=== PATIENT | female | born 1970 | race Caucasian/White ===

== ENCOUNTER 2022-12-09 08:33 | Emergency (ER) | payer BC, SELFPAY ==
[2022-12-09 08:40] VITALS: BP 121/55; PULSE 55; RESP 18; TEMP 36.6; O2SAT 96; BMI 30.4
--- NOTE | 2022-12-09 08:47 | XR_ITS ---
FINAL REPORT CLINICAL HISTORY: ankle pain FINDINGS: Left foot Three views were obtained. There is no acute fracture or dislocation. The joint spaces appear normal. No soft tissue abnormality is identified. There is a small plantar calcaneal spur. IMPRESSION: No acute process. Reviewed, Interpreted and Dictated by Vasile Constantino III, MD Transcribed by Kiley Barrera Authenticated and [facility]
--- NOTE | 2022-12-09 08:47 | XR_ITS ---
FINAL REPORT CLINICAL HISTORY: ankle pain FINDINGS: Left ankle Three views were obtained. There is no acute fracture or dislocation. The joint spaces appear normal. No soft tissue abnormality is identified. There is a plantar calcaneal spur. IMPRESSION: No acute process. Reviewed, Interpreted and Dictated by Vasile Constantino III, MD Transcribed by Kiley Barrera Authenticated and [facility]
--- NOTE | 2022-12-09 08:48 | PC.NURSE ---
Called RAD to inform of xrays
--- NOTE | 2022-12-09 08:58 | EXP.UTC ---
Discharge Plan Disposition Patient Disposition: Home, Self-Care Condition: Good Prescriptions Prescriptions: New methylprednisolone 4 mg Tablets,Dose Pack 4 mg PO DIRECTED Qty: 21 0RF No Action enalapril maleate 5 mg tablet 5 mg PO BID Patient Comments: TAKE 1 TABLET BY MOUTH TWICE A DAY bisoprolol fumarate 5 mg tablet 5 mg PO DAILY Patient Comments: TAKE 1 TABLET BY MOUTH EVERY DAY escitalopram oxalate 10 mg tablet 10 mg PO DAILY Patient Comments: TAKE 1 TABLET BY MOUTH EVERY DAY fenofibrate nanocrystallized 145 mg tablet 145 mg PO DAILY Patient Comments: TAKE 1 TABLET BY MOUTH DAILY. NEED TO KEEP FOLLOW UP APPT Referrals Follow up/Referrals: Prema Ferrari [Primary Care Provider] - See instructions Activity Restrictions/Add. Instructions Additional Instructions/Restrictions: Rest the extremity, apply ice for 15 minutes as tolerated three or four times per day, Wear the suzy wrap for compression, Elevate the extremity as tolerated while you are resting. Take the medication as directed. Follow up with Dr. Rodriguez (podiatry). I put in a referral but you need to call her office and schedule an appointment. Follow up with your regular doctor. GO TO THE ER FOR ANY WORSENING SYMPTOMS Clinical Impressions Clinical Impression: Tendinitis of left foot, Left foot pain Stand Alone Forms Stand Alone Forms: Work/School Release Instructions Patient Instructions: DI for Tendinitis, DI for Foot Pain, How to Apply an Elastic Wrap on Ankle Discharge ED Provider: Ralph Ruiz [facility] General Stated complaint: Left ankle swollen, no accident Mode of Arrival: Ambulatory Source of Information: Patient Limitations: No Limitations Time Seen by Provider: 12/09/22 08:58 Description of Symptoms (Recalled from Triage Doc. by RN): left ankle is swollen and hurts to put weight on it HEENT Symptoms (Recalled from RN notes): No Resp Symptoms (Recalled from RN notes): No Skin Symptoms (Recalled from RN notes): No MS Symptoms (Recalled from RN notes): Yes Functional Status (Recalled from RN notes): n/a History of Present Illness Provider Complaint: She states that for the past 5 days she has had left foot and ankle pain and swelling. She denies any injury. She denies any history of diabetes or gout. Related Data Home Medications Medication Instructions Recorded Confirmed bisoprolol fumarate 5 mg tablet 5 mg PO DAILY HTN 12/09/22 12/09/22 enalapril maleate 5 mg tablet 5 mg PO BID HTN 12/09/22 12/09/22 escitalopram oxalate 10 mg tablet 10 mg PO DAILY mood 12/09/22 12/09/22 fenofibrate nanocrystallized 145 145 mg PO DAILY Cholesterol 12/09/22 12/09/22 mg tablet Previous Rx's Medication Instructions Recorded methylprednisolone 4 mg tablets in 4 mg PO DIRECTED #21 tabs 12/09/22 a dose pack Allergies Allergy/AdvReac Type Severity Reaction Status Date / Time No Known Allergies Allergy Verified 12/09/22 08:53 Worker's Comp Is this a Worker's Comp case?: No [facility] Disclaimer: The information contained in this section may have been updated after the patient was seen, as this information can be updated by other users. 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 Smoking Status: Never smoker alcohol intake: never current occupational status: retired Travel in the last 8 weeks: None ROS Obtained: Yes All systems reviewed & no additional complaints except as documented Constitutional Constitutional: Denies chills and Denies fever(s) Eyes Eyes: Denies eye discharge ENT Ears, Nose, Mouth, and Throat: Denies dizziness, Denies otalgia and Denies sore throat Cardiovascular Cardiovascular: Denies chest pain Respiratory Respiratory: Denies shortness of breath, Denies chest congestion, Denies cough, Denies stridor and Denies wheezing Gastrointestinal Gastrointestingal: Denies nausea or vomiting Musculoskeletal Musculoskeletal: Reports as per HPI Integu
[2022-12-09 09:41] VITALS: BP 121/55; PULSE 55; RESP 18; TEMP 36.6; O2SAT 96
== END 2022-12-09 09:40 | disposition home or self-care (01) ==
PROVIDERS: Emergency Provider Nurse Practitioner Family; PCP Family Medicine
DX: M79.672 Pain in left foot (principal); M77.52 Other enthesopathy of left foot and ankle
CPT/HCPCS: 73610; 73630; 99204; 99212; G0463

== ENCOUNTER 2023-08-01 08:19 | Emergency (ER) | payer BC, SELFPAY ==
[2023-08-01 08:30] VITALS: BP 128/71; PULSE 66; RESP 18; TEMP 36.9; O2SAT 95; BMI 28.8
[2023-08-01 08:48] LABS: UTC Strep Screen (Rapid) Negative (Negative)
--- NOTE | 2023-08-01 08:54 | EXP.UTC ---
Discharge Plan Disposition Patient Disposition: Home, Self-Care Condition: Good Prescriptions Prescriptions: New amoxicillin 500 mg tablet 500 mg PO BID 10 Days Qty: 20 0RF fluticasone propionate 50 mcg/actuation spray,suspension 1 spray intranasal DAILY Qty: 9.9 0RF No Action enalapril maleate 5 mg tablet 5 mg PO BID Patient Comments: TAKE 1 TABLET BY MOUTH TWICE A DAY bisoprolol fumarate 5 mg tablet 5 mg PO DAILY Patient Comments: TAKE 1 TABLET BY MOUTH EVERY DAY escitalopram oxalate 10 mg tablet 10 mg PO DAILY Patient Comments: TAKE 1 TABLET BY MOUTH EVERY DAY fenofibrate nanocrystallized 145 mg tablet 145 mg PO DAILY Patient Comments: TAKE 1 TABLET BY MOUTH DAILY. NEED TO KEEP FOLLOW UP APPT carvedilol 6.25 mg Tablet 6.25 mg PO BID Referrals Follow up/Referrals: Prema Ferrari [Primary Care Provider] - See instructions Activity Restrictions/Add. Instructions Additional Instructions/Restrictions: Start antibiotic patient to take as ordered for a full length of time even if you feel better. Sinus infections do not get better overnight. It may take 2-3 days to notice much improvement so be sure to use conservative measures as discussed for symptoms. Flonase 1 spray each nostril daily to help with nasal congestion, sinus and ear pressure/information Increase fluids Humidifier/vaporizer as needed Tylenol and ibuprofen as needed for fever or pain. If symptoms do not improve or get worse return or be seen in the ER Follow-up with primary care this week Clinical Impressions Clinical Impression: Sinusitis Instructions Patient Instructions: DI for Sinusitis Discharge ED Provider: Dexter ([facility])Fatimah [facility] HPI General Stated complaint: sore throat cough runny nose sinus pressure Mode of Arrival: Ambulatory Source of Information: Patient and Parent(s) Limitations: No Limitations Time Seen by Provider: 08/01/23 08:55 Description of Symptoms (Recalled from Triage Doc. by RN): Pt's symptoms are sinus infection, coughing, and sore throat. HEENT Symptoms (Recalled from RN notes): Yes Resp Symptoms (Recalled from RN notes): No Skin Symptoms (Recalled from RN notes): No MS Symptoms (Recalled from RN notes): No Functional Status (Recalled from RN notes): n/a History of Present Illness Provider Complaint: 53 yr old female presents for sinus tenderness, thick yellow drainage, coughing, and sore throat for 1 week. Related Data Home Medications Medication Instructions Recorded Confirmed bisoprolol fumarate 5 mg tablet 5 mg PO DAILY HTN 12/09/22 08/01/23 enalapril maleate 5 mg tablet 5 mg PO BID HTN 12/09/22 08/01/23 escitalopram oxalate 10 mg tablet 10 mg PO DAILY mood 12/09/22 08/01/23 fenofibrate nanocrystallized 145 145 mg PO DAILY Cholesterol 12/09/22 08/01/23 mg tablet carvedilol 6.25 mg tablet 6.25 mg PO BID 08/01/23 08/01/23 Previous Rx's Medication Instructions Recorded amoxicillin 500 mg tablet 500 mg PO BID 10 days #20 tabs 08/01/23 fluticasone propionate 50 1 spray intranasal DAILY #9.9 mL 08/01/23 mcg/actuation nasal spray,suspension Allergies Allergy/AdvReac Type Severity Reaction Status Date / Time No Known Allergies Allergy Verified 08/01/23 08:42 Worker's Comp Is this a Worker's Comp case?: No [facility] Disclaimer: The information contained in this section may have been updated after the patient was seen, as this information can be updated by other users. 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 smoker alcohol intake: never current occupational status: retired Travel in the last 8 weeks: None ROS Obtained: Yes All systems reviewed & no additional complaints except as documented Constitutional Constitutional: Reports system reviewed and no additional complaints, except as documented and Reports as per HPI Eyes Eyes: Reports system reviewed and no additional complaints, except as documented ENT Ears, Nose, Mouth, and Throat: Reports system reviewed and no additional complaints, except as documented, Reports as per HPI, Reports nasal congestion, Reports nasal discharge, Reports post nasal drip, Reports sinus pain, Reports sinus pressure and Reports sore throat Cardiovascular Cardiovascular: Reports system reviewed and no additional complaints, except as documented Respiratory Respiratory: Reports system reviewed and no additional complaints, except as documented, Reports as per HPI and Reports cough Musculoskeletal Musculoskeletal: Reports system reviewed and no additional complaints, except as documented and Reports as per HPI Integumentary/Breasts Skin/Breast: Reports system reviewed and no additional complaints, except as documented Neurologic Neurologic: Reports system reviewed and no additional complaints, except as documented Endocrine Endocrine: Reports system reviewed and no additional complaints, except as documented Hematologic/Lymphatic Henatologic/Lymphatic: Reports system reviewed and no additional complaints, except as documented Allergic/Immunologic Allergic/Immunologic: Reports system reviewed and no additional complaints, except as documented Physical Exam General General appearance: alert and in no apparent distress Head Head exam: atraumatic Eye Eye exam: Present PERRL ENT ENT exam: Present mucous membranes moist and TM's normal bilaterally Expanded ENT Exam Nose exam: Present sinus tenderness Respiratory Respiratory exam: Present normal lung sounds bilaterally Cardiovascular Cardiovascular exam: Present regular rate and normal rhythm Neurological Exam Neurological exam: Present alert and oriented X3 Skin Skin exam: Present warm and intact Medical Decision Making Medical Records Medical records reviewed: Yes I reviewed the patient's medical records. Caleb Inquiry Pt receiving controlled substance: No Caleb was queried for this patient: No Vital Signs: 08/01/23 08:30 Temperature 98.5 F Temperature Source Oral Pulse Rate [Right Radial] 66 Respiratory Rate 18 Blood Pressure [Right Arm] 128/71 Blood Pressure Mean [Right Arm] 90 Blood Pressure Source [Right Arm] Automatic Cuff Blood Pressure Position [Right Arm] Sitting 02 Sat by Pulse Oximetry 95 Oxygen Delivery Method Room Air Lab Data Lab results reviewed: Yes I reviewed the patient's lab results. Lab Results 08/01/23 08:41: Strep Scn Rapid Clinic Negative Orders (Tests/Meds): ORDERS Category Date Time Status Strep Screen Confirmation Stat Micro 08/01/23 08:41 Received
[2023-08-01 09:07] VITALS: BP 128/71; PULSE 66; RESP 18; TEMP 36.9; O2SAT 95
== END 2023-08-01 09:07 | disposition home or self-care (01) ==
PROVIDERS: Emergency Provider Nurse Practitioner Family; PCP Family Medicine
DX: J01.90 Acute sinusitis, unspecified (principal); R05.9 Cough, unspecified; R07.0 Pain in throat; R09.81 Nasal congestion
CPT/HCPCS: 87880; 99212; 99214; G0463